=== PATIENT | female | born 1970 | race Hispanic/Latino ===

== ENCOUNTER 2023-08-28 16:19 | Inpatient (IN) | payer SELFPAY ==
[~2023-08-28 16:19] MED LIST: Iopamidol-370 76% 500 ML MDV (1 ML CHARGE) ONE
[2023-08-28 17:05] LABS: #Monocytes 0.4 thou/uL (0.11-0.59); #Neutrophils 13.8 thou/uL (1.40-6.50); %Basophils 0.2 % (0.0-1.0); %Eosinophils 0.1 % (0.0-10.0); %Lymphocytes 13.7 % (21.0-51.0); %Monocytes 2.5 % (0.0-10.0); %Neutrophils 83.1 % (42.0-75.0); Hematocrit 42.2 % (36.0-47.0); Mean Corpuscular HGB CONC 33.2 g/dL (32.0-36.0); Mean Corpuscular Hemoglobin 30.2 pg (27.0-31.0); Mean Corpuscular Volume 90.9 fl (78.0-98.0); Mean Platelet Volume 9.7 fL (7.4-10.4); Platelet Count 352 10x3/uL (130-400); RBC Distribution Width 13.2 % (11.5-14.5); Red Blood Cell (RBC) Count 4.64 mill/uL (4.20-5.40); White Blood Cell (WBC) Count 16.6 10x3/uL (4.8-10.8)
[2023-08-28 17:32] LABS: ALT (SGPT) 109 U/L (8-55); AST (SGOT) 93 U/L (5-34); Albumin 3.9 g/dL (3.5-5.0); Alkaline Phosphatase 111 U/L (40-110); Anion Gap 14 mmol/L (10-20); BUN (Urea Nitrogen) 11 mg/dL (9.8-20.1); Bilirubin, Total 0.4 mg/dL (0.2-1.2); Calc. Creatinine Clearance 0 mL/min (70-130); Calcium 9.5 mg/dL (7.8-10.44); Carbon Dioxide 22 mmol/L (22-29); Chloride 103 mmol/L (98-107); Estimated GFR 105; Globulin 4.2 g/dL (2.4-3.5); Glucose 129 mg/dL (70-105); Lipase 6 U/L (8-78); Protein, Total 8.1 g/dL (6.0-8.3); Sodium 135 mmol/L (136-145)
[2023-08-28] MEDS ORDERED: Morphine 4 MG/ML VIAL ONE (17:57)
[2023-08-28] MEDS ORDERED: Ondansetron PF 4 MG/2 ML Vial ONE (17:57)
[2023-08-28 19:34] LABS: Bilirubin Negative (Negative); Blood, Urine 2+ (Negative); CAUTI Indications for Culture Pelvic or flank pain; Clarity Turbid (Clear); Glucose, Urine (Dipstick) Normal (Negative); Ketone, Urine 20 mg/dL (Negative); Leukocyte 25 Leu/uL (Negative); Nitrite Negative (Negative); Protein, Urine (Dipstick) 10 mg/dL (Neg-Trace); Specific Gravity, Urine 1.023 (1.002-1.036); Urobilinogen Normal mg/dL (Less than 2)
[2023-08-28 19:35] LABS: Bacteria/HPF 1+ HPF (None Seen)
[2023-08-28 19:36] LABS: Urine Culture Reflex No No
[2023-08-28] MEDS ORDERED: Ondansetron PF 4 MG/2 ML Vial IVP PRN (20:44)
[2023-08-28] MEDS ORDERED: Morphine 2 MG/ML VIAL SLOW IVP PRN (20:50)
[2023-08-28] MEDS: Lactated Ringer's 1,000 ML IV SCH (21:48)
[2023-08-28] MEDS: Morphine 2 MG/ML VIAL SLOW IVP PRN (21:48)
[2023-08-28 22:20] LABS: Hemoglobin A1c 5.4 % (4.0-6.0)
[2023-08-28 22:38] LABS: ALT (SGPT) 94 U/L (8-55); AST (SGOT) 71 U/L (5-34); Albumin 3.7 g/dL (3.5-5.0); Alkaline Phosphatase 100 U/L (40-110); Bilirubin, Direct 0.2 mg/dL (0.1-0.3); Bilirubin, Total 0.3 mg/dL (0.2-1.2); Protein, Total 7.4 g/dL (6.0-8.3)
[2023-08-28 22:59] VITALS: BMI 60.3
[2023-08-29] MEDS: Lactated Ringer's 1,000 ML IV SCH ×4 (03:34→21:12)
[2023-08-29] MEDS: Morphine 2 MG/ML VIAL SLOW IVP PRN ×2 (03:34→08:49)
[2023-08-29 05:56] LABS: #Eosinphils 0.1 thou/uL (0.0-0.7); #Monocytes 0.7 thou/uL (0.11-0.59); #Neutrophils 11.7 thou/uL (1.40-6.50); %Basophils 0.2 % (0.0-1.0); %Eosinophils 0.5 % (0.0-10.0); %Lymphocytes 15.2 % (21.0-51.0); %Monocytes 4.5 % (0.0-10.0); %Neutrophils 79.2 % (42.0-75.0); Hematocrit 42.4 % (36.0-47.0); Hemoglobin 13.7 g/dL (12.0-16.0); Mean Corpuscular HGB CONC 32.3 g/dL (32.0-36.0); Mean Corpuscular Hemoglobin 29.8 pg (27.0-31.0); Mean Corpuscular Volume 92.4 fl (78.0-98.0); Mean Platelet Volume 9.8 fL (7.4-10.4); Platelet Count 324 10x3/uL (130-400); RBC Distribution Width 13.4 % (11.5-14.5); Red Blood Cell (RBC) Count 4.59 mill/uL (4.20-5.40); White Blood Cell (WBC) Count 14.8 10x3/uL (4.8-10.8)
[2023-08-29 06:26] LABS: ALT (SGPT) 83 U/L (8-55); AST (SGOT) 52 U/L (5-34); Albumin 3.7 g/dL (3.5-5.0); Alkaline Phosphatase 101 U/L (40-110); Anion Gap 14 mmol/L (10-20); BUN (Urea Nitrogen) 10 mg/dL (9.8-20.1); Bilirubin, Total 0.4 mg/dL (0.2-1.2); Calc. Creatinine Clearance 230 mL/min (70-130); Calcium 9.2 mg/dL (7.8-10.44); Carbon Dioxide 24 mmol/L (22-29); Chloride 103 mmol/L (98-107); Estimated GFR 107; Globulin 3.9 g/dL (2.4-3.5); Glucose 129 mg/dL (70-105); Potassium 3.9 mmol/L (3.5-5.1); Protein, Total 7.6 g/dL (6.0-8.3); Sodium 137 mmol/L (136-145)
[2023-08-29 06:40] LABS: HBCM Index 0.07 S/CO (0-0.79); HBSAg Index 0.28 S/CO (0-0.99); Hep A IgM AB Non-Reactive S/CO (NonReactive); Hep A IgM S/CO 0.25 S/CO (0-0.79); Hep B Surf Ag Non-Reactive S/CO (NonReactive); Hep C IgG Ab Non-Reactive S/CO (NonReactive); Hep C Index 0.11 S/CO (0-0.79); Hepatitis B Core IgM Abs Non-Reactive S/CO (NonReactive)
[2023-08-29] MEDS: Pantoprazole 40 MG VIAL IVP SCH (08:50)
[2023-08-29] MEDS ORDERED: Ketorolac Tromethamine 30 MG/ML VIAL IVP PRN (10:35)
[2023-08-30] MEDS: Lactated Ringer's 1,000 ML IV SCH ×3 (03:37→16:58)
[2023-08-30 07:23] LABS: #Basophils 0.1 thou/uL (0.0-0.2); #Eosinphils 0.4 thou/uL (0.0-0.7); #Monocytes 0.8 thou/uL (0.11-0.59); #Neutrophils 6.1 thou/uL (1.40-6.50); %Basophils 0.4 % (0.0-1.0); %Lymphocytes 36.3 % (21.0-51.0); %Monocytes 6.9 % (0.0-10.0); %Neutrophils 53.1 % (42.0-75.0); Hematocrit 44.3 % (36.0-47.0); Mean Corpuscular HGB CONC 31.6 g/dL (32.0-36.0); Mean Corpuscular Volume 94.9 fl (78.0-98.0); Platelet Count 289 10x3/uL (130-400); RBC Distribution Width 13.7 % (11.5-14.5); Red Blood Cell (RBC) Count 4.67 mill/uL (4.20-5.40); White Blood Cell (WBC) Count 11.5 10x3/uL (4.8-10.8)
[2023-08-30 07:47] LABS: ALT (SGPT) 64 U/L (8-55); AST (SGOT) 40 U/L (5-34); Albumin 3.3 g/dL (3.5-5.0); Alkaline Phosphatase 84 U/L (40-110); Anion Gap 11 mmol/L (10-20); BUN (Urea Nitrogen) 8 mg/dL (9.8-20.1); Bilirubin, Total 0.4 mg/dL (0.2-1.2); Calc. Creatinine Clearance 207 mL/min (70-130); Calcium 8.8 mg/dL (7.8-10.44); Carbon Dioxide 27 mmol/L (22-29); Chloride 103 mmol/L (98-107); Estimated GFR 103; Globulin 3.6 g/dL (2.4-3.5); Glucose 100 mg/dL (70-105); Potassium 3.7 mmol/L (3.5-5.1); Protein, Total 6.9 g/dL (6.0-8.3); Sodium 137 mmol/L (136-145)
[2023-08-30] MEDS: Pantoprazole 40 MG VIAL IVP SCH (10:12)
[2023-08-30] MEDS ORDERED: Acetaminophen 500 MG TAB PO SCH (14:45)
[2023-08-30] MEDS ORDERED: Acetaminophen 500 MG TAB PO PRN (14:45)
[2023-08-30] MEDS: Methylcellulose 500 MG TAB PO SCH (21:14)
[2023-08-30] MEDS: Polyethylene Glycol 3350 17 GM Packet PO SCH (21:14)
[2023-08-31 05:29] LABS: #Basophils 0.1 thou/uL (0.0-0.2); #Eosinphils 0.5 thou/uL (0.0-0.7); #Monocytes 0.7 thou/uL (0.11-0.59); #Neutrophils 6.3 thou/uL (1.40-6.50); %Basophils 0.5 % (0.0-1.0); %Eosinophils 4.2 % (0.0-10.0); %Lymphocytes 32.6 % (21.0-51.0); %Monocytes 6.2 % (0.0-10.0); %Neutrophils 56.1 % (42.0-75.0); Hematocrit 42.8 % (36.0-47.0); Hemoglobin 13.6 g/dL (12.0-16.0); Mean Corpuscular HGB CONC 31.8 g/dL (32.0-36.0); Mean Corpuscular Hemoglobin 29.8 pg (27.0-31.0); Mean Corpuscular Volume 93.7 fl (78.0-98.0); Mean Platelet Volume 10.4 fL (7.4-10.4); Platelet Count 317 10x3/uL (130-400); RBC Distribution Width 13.5 % (11.5-14.5); Red Blood Cell (RBC) Count 4.57 mill/uL (4.20-5.40); White Blood Cell (WBC) Count 11.2 10x3/uL (4.8-10.8)
[2023-08-31 06:01] LABS: ALT (SGPT) 69 U/L (8-55); AST (SGOT) 48 U/L (5-34); Albumin 3.6 g/dL (3.5-5.0); Alkaline Phosphatase 91 U/L (40-110); Anion Gap 15 mmol/L (10-20); BUN (Urea Nitrogen) 8 mg/dL (9.8-20.1); Bilirubin, Total 0.6 mg/dL (0.2-1.2); Calc. Creatinine Clearance 223 mL/min (70-130); Calcium 9.1 mg/dL (7.8-10.44); Carbon Dioxide 24 mmol/L (22-29); Chloride 103 mmol/L (98-107); Estimated GFR 106; Glucose 79 mg/dL (70-105); Potassium 3.5 mmol/L (3.5-5.1); Protein, Total 7.6 g/dL (6.0-8.3); Sodium 138 mmol/L (136-145)
[2023-08-31 08:21] VITALS: BP 164/87; TEMP 98.1
[2023-08-31] MEDS: Methylcellulose 500 MG TAB PO SCH (09:27)
[2023-08-31] MEDS: Polyethylene Glycol 3350 17 GM Packet PO SCH (09:27)
== END 2023-08-31 13:02 | disposition home or self-care (01) | DRG 394 ==
LOC: ERS 16:19 → SJJU 19:34 → INTOOBSV 19:34 → OBSVTOIN 08-29 13:00
PROVIDERS: ADMIT Family Medicine; ATTEND Family Medicine
PROC: 0DH67UZ Insertion of Feeding Device into Stomach, Via Natural or Artificial Opening (ICD-10-PCS; principal; 2023-08-29)
DX: K43.6 Other and unspecified ventral hernia with obstruction, without gangrene (principal); Z68.44 Body mass index [BMI] 60.0-69.9, adult; R74.01 Elevation of levels of liver transaminase levels; E66.01 Morbid (severe) obesity due to excess calories; Z83.3 Family history of diabetes mellitus; K80.20 Calculus of gallbladder without cholecystitis without obstruction; R73.9 Hyperglycemia, unspecified
CPT/HCPCS: 36415; 74018; 74177; 76705; 80053; 80074; 81001; 83036; 83690; 85025; 93005; 96372; 96375; 96376; C9113; G0378; J1650; J2270; J2272; J2405; J7120; Q9967